=== PATIENT | female | born 1990 | race Caucasian/White ===

== ENCOUNTER 2018-06-20 16:17 | Inpatient (IN) ==
--- NOTE | 2018-06-20 18:46 | ED ---
HPI General Chief Complaint: Psychiatric Symptoms Stated Complaint: eval Time Seen by Provider: 06/20/18 16:55 Source: patient Mode of arrival: ambulatory Limitations: no limitations History of Present Illness HPI Narrative: 27-year-old female who presents to the ED for evaluation of Tyshawn hubbard. Patient was Villagran acted by another facility. She apparently overdosed on Valium times 20 pills. She was evaluated at that facility and was medically clear. She had blood work that was essentially unremarkable. She was brought here for further evaluation. Patient is having trouble with her relationship with her significant other. Apparently she has been having a lot of arguments with this individual and today she tried to hang herself as well as take all the pills. Again she was already medically cleared. She states feeling depressed and has a history of PTSD and bipolar disorder. Takes medications. She also has a history of back problems and takes chronic narcotics as well as anxiety for which she takes Xanax. No other medical issues at this time. Related Data Home Medications Medication Instructions Recorded Confirmed Xanax 2 mg PO PRN PRN 06/20/18 06/20/18 hydrocodone-acetaminophen [[place]] 1 tab PO Q6H PRN 06/20/18 06/20/18 trazodone 150 mg PO BID 06/20/18 06/20/18 Allergies Allergy/AdvReac Type Severity Reaction Status Date / Time bupropion [From Wellbutrin] AdvReac Hallucinati Verified 06/20/18 18:41 ons Review of Systems ROS: all other systems reviewed are negative [facility] Social History Social History Substance History: Past History Recent Travel in [facility] within the Last 8 Weeks: No Recent Out of Country Travel within the Last 8 Weeks: No Substance Abuse Detail Alcohol: Substance Use Status: Active Substance Frequency: 1-2 times weekly Last Used: Unknown Reason for Use: Feels Good Exam Narrative Exam Narrative: GENERAL: Well-appearing in no distress. SKIN: Focused skin assessment warm/dry. HEAD: Atraumatic. Normocephalic. EYES: Pupils equal and round. No scleral icterus. No injection or drainage. ENT: No nasal bleeding or discharge. Mucous membranes pink and moist. Tongue is midline. No uvula deviation. NECK: Trachea midline. No JVD. CARDIOVASCULAR: Regular rate and rhythm. No murmur appreciated. RESPIRATORY: No accessory muscle use. Clear to auscultation. Breath sounds equal bilaterally. GASTROINTESTINAL: Abdomen soft, non-tender, nondistended. Hepatic and splenic margins not palpable. MUSCULOSKELETAL: No obvious deformities. No clubbing. No cyanosis. No edema. Full range of motion of the upper and lower extremities bilaterally. 2+ pulses bilaterally. NEUROLOGICAL: Awake and alert. No obvious cranial nerve deficits. Motor grossly within normal limits. Normal speech. PSYCHIATRIC: Appropriate mood and affect; insight and judgment normal. Course Initial Documented Vital Signs Temperature 98.6 F 06/20/18 16:25 Pulse Rate 104 H 06/20/18 16:25 Respiratory Rate 17 06/20/18 16:25 Blood Pressure 137/66 06/20/18 16:25 Pulse Oximetry 99 06/20/18 16:25 Last Documented Vital Signs Temperature 98.2 F 06/20/18 16:47 Pulse Rate 92 H 06/20/18 16:47 Respiratory Rate 16 06/20/18 16:47 Blood Pressure 121/58 L 06/20/18 16:47 Pulse Oximetry 99 06/20/18 16:47 Medical Decision Making MDM Narrative Medical decision making narrative: 27-year-old female who presents to the ED for evaluation of Villagran act. Patient was properly examined and was found to have signs and symptoms consistent appears to be psychiatric in nature. Patient already had medical clearance at another facility. I reviewed the records and had blood work already. At this time patient is in no acute distress. She does have some chronic back problems and she does request some pain medication. She does take Lortab daily. She will be given 1 dose of Lortab here. Patient was medically clear. Okay to be seen by psych. Mental health screening was discussed with the patient. Medical Screen Exam Complete: Yes Emergency Medical Condition: Yes Differential Diagnosis Differential Diagnosis: Depression versus suicidal ideation versus anxiety versus adjustment disorder versus mood disorder versus bipolar disorder versus schizophrenia versus paranoid disorder versus psychosis versus substance abuse versus alcohol abuse versus alcohol induced psychosis versus homicidality addition versus cutting versus personality disorder Medical Records Medical records reviewed: Yes I reviewed the patient's medical records. Discharge Plan Discharge Disposition Patient Disposition: Sign Out(ED Internal Use Only) Discharge Details Diagnosis: Suicidal ideation Physicians Team ED Provider: Jose Luis Dominguez ED Midlevel Provider: Jay Gutierrez Primary Care Provider: Primary Care Physici,No Rxs /Orders / Referrals /Forms Prescriptions: No Action hydrocodone-acetaminophen [[place]] 10-325 mg Tablet 1 tab PO Q6H PRN (Reason: Pain) RF: 0 trazodone 150 mg Tablet 150 mg PO BID RF: 0 Xanax 2 mg tablet 2 mg PO PRN PRN (Reason: Anxiety) RF: 0 Discharge Interventions Interventions: Vital Signs Last Done: 06/20/18 16:47 Status ED Status: Medically Cleared
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
[2018-06-20] MEDS ORDERED: traZODone 50 MG Tablet PO PRN (19:53)
[2018-06-20] MEDS ORDERED: Aluminum/Magnesium/Simethacone Susp 30 ML UDC PO PRN (19:53)
[2018-06-20] MEDS: Senna/Docusate Sodium 8.6/50 MG Tablet PO SCH (23:32)
[2018-06-21] MEDS: Senna/Docusate Sodium 8.6/50 MG Tablet PO SCH (09:48)
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
== END 2018-06-21 14:45 | disposition home or self-care (01) | DRG 882 ==
LOC: NEPJ 16:17 → NEDA 19:55 → H260 20:30
PROVIDERS: ADMIT Psychiatry & Neurology Psychiatry; ATTEND Psychiatry & Neurology Psychiatry